=== PATIENT | male | born 1995 | race Caucasian/White ===

== ENCOUNTER → 2016-09-19 | Outpatient (CLI) | payer OTHER ==
--- NOTE | ~2016-09-19 | ECHO ---
[facility] 21 Y [address] ROOM: [place] [address] LOCATION: [facility] ADMIT DATE: 09/19/2016 Noninvasive Cardiology DISCHARGE DATE: FAMILY PHYSICIAN: Rodríguez Simmons MD ATTENDING PHYSICIAN: NAUN KARIMI NAME OF PROCEDURE: Cardiac MRI DATE OF PROCEDURE: 09/19/16 INDICATION: Dyspnea PROCEDURE: Patient was prepared in the normal routine for cardiac MRI. Renal function was normal. The patient underwent cardiac MRI for morphology and function. Patient received 20 ml of Prohance contrast. The scan was performed on [employer]codeyr[employer]ype[employer]ield 3T MRI system. FINDINGS: 1. Left ventricle is moderately dilated with mild to moderate dysfunction. Right ventricle is mildly dilated with mild RV systolic dysfunction. There is mild eccentric left ventricular hypertrophy. LV end diastolic volume 282 ml. LV end systolic volume of 161 ml. Left ventricular ejection fraction 40%. 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 There is small pericardial effusion. 2. The aortic valve is trileaflet, no definite vegetation noted. (Followup study is indicated if there is concern regarding infection). Mitral, tricuspid and pulmonic valves are unremarkable. 3. Delayed enhancement showed no evidence of scar or thrombus. 4. Thoracic aorta is of normal caliber without any reason for dissection. Normal pulmonary venous anatomy. CONCLUSION: 1. 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 2. Moderate left ventricular dilatation, left ventricular ejection fraction of 40%. 3. Small pericardial effusion. NABOR ANAND MD ON/gb [facility]GE: 21 Y [address] ROOM: [place], [place] [address] LOCATION: [facility] ADMIT DATE: 09/19/2016 Noninvasive Cardiology DISCHARGE DATE: FAMILY PHYSICIAN: Rodríguez Simmons MD ATTENDING PHYSICIAN: NAUN KARIMI /[id number] CC: Naun Karimi MD Printer CARDIOPULMINARY dtt: 11/11/16 2243 NABOR ANADN dtd: 10/24/16 [id number] Asad Mistry
== END | disposition disaster alternative care site (69) ==
LOC: GRAD 08-29 12:00
DX: J12.0 Adenoviral pneumonia (principal); I10 Essential (primary) hypertension; R93.1 Abnormal findings on diagnostic imaging of heart and coronary circulation; C85.90 Non-Hodgkin lymphoma, unspecified, unspecified site; S31.109D Unspecified open wound of abdominal wall, unspecified quadrant without penetration into peritoneal cavity, subsequent encounter; J90 Pleural effusion, not elsewhere classified; X58.XXXD Exposure to other specified factors, subsequent encounter
CPT/HCPCS: A9577